=== PATIENT | female | born 1990 | race Two or more races ===

== ENCOUNTER 2022-10-06 12:41 | Outpatient (CLI) | payer OTHER | END 2022-10-06 13:40 | disposition home or self-care (01) | LOC: NST 12:41 | PROVIDERS: ATTEND Obstetrics & Gynecology Maternal & Fetal Medicine | DX: Z34.83 Encounter for supervision of other normal pregnancy, third trimester (principal) ==

== ENCOUNTER 2022-11-17 10:00 | Inpatient (IN) | payer OTHER ==
[~2022-11-17] VITALS: Ht 165.1 cm; Wt 3.2 kg
== END 2022-11-27 12:57 | disposition home or self-care (01) | DRG 785 ==
LOC: O/R 11-24 06:43 → LDR 11-24 07:00 → OB/GYN 11-24 16:13
PROVIDERS: ADMIT Obstetrics & Gynecology; ATTEND Obstetrics & Gynecology
PROC: 0UB70ZZ Excision of Bilateral Fallopian Tubes, Open Approach (ICD-10-PCS; 2022-11-24)
PROC: 0UB90ZZ Excision of Uterus, Open Approach (ICD-10-PCS; 2022-11-24)
PROC: 4A1HXCZ Monitoring of Products of Conception, Cardiac Rate, External Approach (ICD-10-PCS; 2022-11-24)
PROC: 10D00Z1 Extraction of Products of Conception, Low, Open Approach (ICD-10-PCS; principal; 2022-11-24 07:00)
DX: O34.211 Maternal care for low transverse scar from previous cesarean delivery (principal); Z3A.39 39 weeks gestation of pregnancy; Z37.0 Single live birth; Z20.822 Contact with and (suspected) exposure to COVID-19; Z30.2 Encounter for sterilization; O34.13 Maternal care for benign tumor of corpus uteri, third trimester; D25.9 Leiomyoma of uterus, unspecified